=== PATIENT | male | born 1945 | race Caucasian/White ===

== ENCOUNTER 2021-12-15 18:42 | Observation (INO) ==
[2021-12-16] MEDS ORDERED: Ondansetron 4 MG/2 ML VIAL IVP PRN (00:22)
[2021-12-16] MEDS ORDERED: Acetaminophen 325 MG TABLET PO PRN (00:22)
[2021-12-16] MEDS ORDERED: Naloxone 0.4 MG/ML INJ IVP PRN (00:22)
[2021-12-16] MEDS ORDERED: Nitroglycerin 0.4 MG TAB.SUBL SL PRN (00:23)
[2021-12-16] MEDS ORDERED: Perflutren Lipid Microsphere 1.3 ML in 0.9 % Sodium Chloride 8.7 ML IVP PRN (02:40)
[2021-12-16] MEDS ORDERED: Dextrose 4 GM Chewable Tablets PO PRN ×2 (02:49)
[2021-12-16] MEDS ORDERED: D5% in Water 1,000 ML IVC PRN (02:49)
[2021-12-16] MEDS ORDERED: *HR* Dextrose 50 % in Water (Syg) 50 ML SYRINGE IVP PRN (02:49)
[2021-12-16] MEDS ORDERED: Pregabalin 75 MG CAPSULE PO ONE (02:54)
[2021-12-16] MEDS ORDERED: *HR* OxyCODONE Immed Rel 5 MG TABLET PO ONE (02:56)
[2021-12-16 03:53] LABS: Hematocrit 39.6 % (37.5-50.1); Hemoglobin 13.7 g/dL (12.9-16.9); Mean Corpuscular HGB Conc 34.6 g/dL (31.6-35.5); Mean Corpuscular Hemoglobin 29.5 pg (28.0-33.3); Mean Corpuscular Volume 85.2 fL (83.0-100.0); Mean Platelet Volume 10.6 fL (9.4-12.4); Platelet Count 228 K/mcL (140-400); Red Blood Count 4.65 M/mcL (4.19-5.50); Red Cell Distribution Width 12.7 % (11.5-14.5)
[2021-12-16 04:01] LABS: INR 1.1; Prothrombin Time 12.1 Seconds (9.4-12.1)
[2021-12-16 04:03] LABS: Activated Partial Thrombo Time 32.7 Seconds (26.0-36.0)
[2021-12-16 04:25] LABS: BUN/Creatinine Ratio 11 (6-26); Blood Urea Nitrogen 8 mg/dL (8-23); Calcium 9.3 mg/dL (8.6-10.3); Carbon Dioxide 26 mEq/L (23-29); Chloride 98 mEq/L (98-107); Chol/HDL Ratio 3.3 (0-4.9); Cholesterol 122 mg/dL (< 200); Glucose 143 mg/dL (70-105); HDL Cholesterol 37 mg/dL (40-59); LDL Cholesterol,Calculated 65 mg/dL (< 100); Magnesium 1.7 mg/dL (1.6-2.6); Osmolality,Calculated 281 (280-300); Potassium 3.9 mEq/L (3.5-5.1); Sodium 135 mEq/L (136-145); Triglycerides 98 mg/dL (< 150); Troponin I < 0.03 ng/mL (< 0.04); eGFR For African Americans > 60 (> 60); eGFR For Non-African Americans > 60 (> 60)
[2021-12-16 04:29] LABS: Estimated Average Glucose 212 mg/dl
[2021-12-16] MEDS ORDERED: *HR* Heparin 5,000 UNIT/ML VIAL SQ SCH (06:00)
[2021-12-16] MEDS: Insulin LISPRO 300 UNITS/3 ML VIAL SUBQ SCH ×2 (06:13→12:33)
[2021-12-16] MEDS ORDERED: Regadenoson 0.4 MG/5 ML SYRINGE IVP ONE (06:37)
[2021-12-16 06:55] VITALS: O2SAT 93
[2021-12-16] MEDS ORDERED: Aspirin Enteric Coated 81 MG Tablet PO SCH (09:00)
[2021-12-16] MEDS ORDERED: Famotidine 20 MG TABLET PO SCH (09:00)
[2021-12-16 10:34] VITALS: BP 162/62; PULSE 59; TEMP 97.9
[2021-12-16] MEDS: Pregabalin 75 MG CAPSULE PO SCH ×2 (10:45→12:27)
[2021-12-16] MEDS: Ketorolac 30 MG/ML VIAL IVP ONE ×2 (11:55→12:27)
[2021-12-16] MEDS ORDERED: *HR* FentaNYL PATCH 75 MCG PATCH TD SCH (12:00)
== END 2021-12-16 13:24 | disposition home or self-care (01) ==
LOC: 3BNU → SUATTDRO 23:19
PROVIDERS: ADMIT Family Medicine; ATTEND Internal Medicine